=== PATIENT | female | born 1995 | race Caucasian/White ===

== ENCOUNTER → 2022-01-21 | Outpatient (CLI) | payer OTHER ==
[~2022-01-21] VITALS: Ht 165.1 cm; Wt 115.4 kg
[~2022-01-21] MED LIST: DICY10CA12 PO; DULO30CA49 PO; LEVO1TAB9 PO; LOSA25TA41 PO; METF-397 PO; METO50TA15 PO; MULT-1136 PO; NITR100C PO; POTASSIUM CHLORIDE 20 MEQ PO; TMSL.4C PO
== END | disposition home or self-care (01) ==
LOC: PREOP 15:23
PROVIDERS: ATTEND Urology
DX: Z01.818 Encounter for other preprocedural examination (principal)

== ENCOUNTER → 2022-01-21 | Outpatient (CLI) | payer OTHER ==
--- NOTE | 2022-01-21 16:48 | Diagnostic Imaging Report ---
INDICATION: Left ureteral calculus. COMPARISON: None. FINDINGS: Two supine radiographic views of the abdomen were obtained and show nondistended loops of small bowel. There is no large collection of free intraperitoneal air. No unexpected extraosseous calcifications or radiopaque foreign bodies are seen on either side. Osseous structures show no gross acute abnormalities. IMPRESSION: 1. Nonobstructed small bowel gas pattern. Dictated by: Dictated on workstation # [id number]
== END ==
LOC: RAD 13:26
PROVIDERS: ATTEND Urology
DX: N20.1 Calculus of ureter (principal)
CPT/HCPCS: 74018

== ENCOUNTER 2022-01-22 07:35 | Day surgery (SDC) | payer OTHER ==
[2022-01-22] VITALS (11 sets, daily range): BP systolic 81–119; BP diastolic 51–82
[~2022-01-22] VITALS: Ht 165 cm; Wt 115.4 kg
[2022-01-22] MEDS ORDERED: cefTRIAXone 1 GM PRE-MIX 50 ML IV ONE ×2 (08:00→08:43)
--- NOTE | 2022-01-22 08:18 | Progress Note-Pre Operative ---
Pre-Operative Progress Note H&P Reviewed The H&P was reviewed, patient examined and no changes noted. Date Seen by Provider: Jan 22, 2022 Time Seen by Provider: 08:18 Date H&P Reviewed: Jan 22, 2022 Time H&P Reviewed: 08:18 Pre-Operative Diagnosis: LT DISTAL URETERAL STONE RUBÉN RUIZ MD Jan 22, 2022 08:18
--- NOTE | 2022-01-22 08:20 | Progress Note-Post Operative ---
Post-Operative Progess Note Surgeon (s)/Corporate General Manager (s) Surgeon RUBÉN RUIZ MD Corporate General Manager: NONE Pre-Operative Diagnosis LT DISTAL URETERAL STONE Post-Operative Diagnosis SAME Procedure & Operative Findings Date of Procedure 01/22/22 Procedure Performed/Findings CYSTOSCOPY Anesthesia Type GENERAL Estimated Blood Loss Estimated blood loss (mL): NONE Specimens/Packing Specimens Removed NONE Packing: NONE RUBÉN RUIZ MD Jan 22, 2022 08:20
[2022-01-22] MEDS: LACTATED RINGERS 1,000 ML IV PRN ×2 (08:25→09:29)
[2022-01-22] MEDS ORDERED: proPOfol 200 MG/20 ML (DIPRIVAN) VIAL IV ONE (08:31)
[2022-01-22] MEDS ORDERED: fentaNYL INJ 100 MCG/2 ML AMP ONE (08:31)
[2022-01-22] MEDS ORDERED: ONDANSETRON 4 MG/2 ML (SDV) Z0FRAN ONE (08:31)
[2022-01-22] MEDS ORDERED: SEVOFLURANE (ULTANE) 15 ML INHAL SOLN ONE (08:31)
[2022-01-22] MEDS ORDERED: MIDAZOLAM 2 MG/2 ML (VERSED) VIAL ONE (08:31)
[2022-01-22] MEDS ORDERED: LIDOCAINE PF 2% 5 ML (XYLOCAINE) VIAL ONE (08:31)
--- NOTE | 2022-01-22 08:33 | Progress Note-Post Operative ---
Post-Operative Progess Note Surgeon (s)/Line Appliance Assembler (s) Surgeon SARA Line Appliance Assembler: NONE Pre-Operative Diagnosis OAB WITH URGENCY AND INCONTINENCE Post-Operative Diagnosis SAME Procedure & Operative Findings Date of Procedure 01/22/22 Procedure Performed/Findings ENDOSCOPIC BOTOX INJECTIONS Anesthesia Type GENERAL Estimated Blood Loss Estimated blood loss (mL): NEGLIGIBLE Specimens/Packing Specimens Removed NONE Packing: NONE RUBÉN RUIZ MD Jan 22, 2022 08:33
--- NOTE | 2022-01-22 08:34 | Discharge Inst-Urology ---
Discharge Inst-Urology Reconcile Patient Problems Problems Reviewed?: Yes Final Diagnosis LT DISTAL URETERAL STONE Patient Instructions/Follow Up Plan/Assessment/Instructions Please make appointment to been seen in office in 3 weeks. Finish ED meds Increase oral fluids for 48 hours and then as needed. Diet and Activity as tolerated. If questions or concerns contact your physician Or seek help at emergency department. RUBÉN RUIZ MD Jan 22, 2022 08:34
--- NOTE | 2022-01-22 08:45 | Diagnostic Imaging Report ---
INDICATION: Urinary tract calculus AP views of the abdomen are obtained with comparison made to study of one day earlier. Bowel gas pattern is stable. There is questionable minimal calcification detected over the upper pole right kidney although this could represent bowel content. There is also faint calcific density projecting over the region of the left ureterovesical junction. Otherwise there is no evidence of pathologic calcification within the abdomen or pelvis. IMPRESSION: Questionable minimal calcification projecting over the upper pole of the right kidney and at the level of the left ureterovesical junction. Clinical correlation is recommended. Dictated by: Dictated on workstation # [id number]
[2022-01-22] MEDS ORDERED: ROCURONIUM 10 MG/ML 5 ML SYRINGE IV ONE (08:56)
--- NOTE | 2022-01-22 09:19 | Progress Note-Post Operative ---
Post-Operative Progess Note Surgeon (s)/Class A Regional Drivers (s) Surgeon RUBÉN RUIZ MD Class A Regional Drivers: NONE Pre-Operative Diagnosis LT DISTAL URETERAL STONE AND VAGINAL PROLAPSE Post-Operative Diagnosis SAME Procedure & Operative Findings Date of Procedure 01/22/22 Procedure Performed/Findings LT URETEROSCOPY WITH STONE LITHOTRIPSY AND BASKET Anesthesia Type GENERAL Estimated Blood Loss Estimated blood loss (mL): NONE Specimens/Packing Specimens Removed STONE FRAGMENT Packing: NONE RUBÉN RUIZ MD Jan 22, 2022 09:19
--- NOTE | 2022-01-22 09:31 | Anesthesia-General Post-Op ---
General Patient Condition Mental Status/LOC: Same as Preop Cardiovascular: Satisfactory Nausea/Vomiting: Absent Respiratory: Satisfactory Pain: Controlled Complications: Absent Post Op Complications Complications None Follow Up Care/Instructions Patient Instructions None needed. Anesthesia/Patient Condition Patient Condition Patient is doing well, no complaints, stable vital signs, no apparent adverse anesthesia problems. No complications reported per nursing. BRANDI SWAN CRNA Jan 22, 2022 09:31
[2022-01-22] MEDS ORDERED: PROMETHAZINE INJ 25 MG/ML (PHENERGAN) AMP IVP ONE (09:45)
[2022-01-22] MEDS ORDERED: morphine INJ 10 MG/ML 1ML (SYR OR VIAL) IVP ONE (09:45)
[2022-01-22] MEDS ORDERED: ONDANSETRON 4 MG/2 ML (SDV) Z0FRAN IVP PRN (09:45)
[2022-01-22] MEDS ORDERED: MEPERIDINE (DEMEROL) INJ 50 MG/ML IVP ONE (09:45)
[2022-01-22] MEDS ORDERED: KETOROLAC 30 MG/ML VIAL ONE (10:26)
[2022-01-22] MEDS ORDERED: KETOROLAC 30 MG/ML VIAL IVP ONE (10:30)
--- NOTE | 2022-01-22 13:18 | OPERATIVE REPORT ---
DATE OF SERVICE: 01/22/2022 PREOPERATIVE DIAGNOSIS: Left distal ureteral stone. POSTOPERATIVE DIAGNOSIS: Left distal ureteral stone. OPERATION PERFORMED: Cystoscopy, left ureteroscopy with the stone basket and lithotripsy. SURGEON: Pilo Ruiz MD ANESTHESIA: General. COMPLICATIONS: None. DESCRIPTION OF PROCEDURE: Under satisfactory general anesthesia, the patient in lithotomy position, genitalia were prepped and draped in the usual sterile fashion. Cystoscope was introduced under vision, noted there was a vaginal prolapse. The bladder was inspected and was normal with a sluggish efflux on the left side. Using the foroblique lens, I dilated the left ureteral orifice intramural portion and I felt that I have disimpacted the stone from the one of the ureter. I removed the cystoscope and introduced the ureteroscope 6.9-Uzbek visualized the stone that was floating, looks soft and yellowish with spikes. I passed a 3-Uzbek Strickland basket above it, engaged it, and it broke up very nicely and I was able to grab the main fragment and sent it to analysis. I went back with ureteroscope to confirm the integrity of the ureter and no more significant fragments at all, removed the ureteroscope, reinserted the cystoscope to empty the bladder. The patient tolerated the procedure and anesthesia well and was sent to recovery room in stable condition. Job ID: [id number] DocumentID: [id number] Dictated Date: 01/22/2022 09:27:07 Punch Press Feeder Date: 01/22/2022 13:17:43 Dictated By: PILO RUIZ MD
== END 2022-01-22 11:46 | disposition home or self-care (01) ==
LOC: SDC 07:35
PROVIDERS: ATTEND Urology
DX: N20.1 Calculus of ureter (principal); G47.33 Obstructive sleep apnea (adult) (pediatric); F41.9 Anxiety disorder, unspecified; Z99.89 Dependence on other enabling machines and devices
CPT/HCPCS: 74018; 76000; 84703; 87081